=== PATIENT | male | born 2000 ===

== ENCOUNTER 2022-01-28 14:00 | Outpatient (RCR) | payer OTHER, SELFPAY | END 2022-03-15 16:00 | disposition home or self-care (01) | PROVIDERS: Visit Provider Family Medicine | DX: S76.311S Strain of muscle, fascia and tendon of the posterior muscle group at thigh level, right thigh, sequela (principal); R10.32 Left lower quadrant pain; Z51.89 Encounter for other specified aftercare | CPT/HCPCS: 97110; 97140; 97162 ==